=== PATIENT | female | born 1970 | race Caucasian/White ===

== ENCOUNTER 2018-09-26 15:54 | Emergency (ER) | payer SELFPAY ==
[~2018-09-26] VITALS: Ht 152.4 cm; Wt 12.7 kg
[2018-09-26] MEDS ORDERED: ACETAMINOPHEN 500 MG TABLET PO ONE (17:30)
[2018-09-26] MEDS ORDERED: PERTUSS(ACELL),DIPH,TET VAC/PF 0.5 ML VIAL IM ONE (17:30)
[2018-09-26] MEDS ORDERED: SULFAMETHOX/TRIMETH DS 800-160 MG/TABLET PO ONE (17:30)
[2018-09-26] MEDS ORDERED: CefTRIAXone SODIUM 1 GM/VIAL IM ONE (17:30)
[2018-09-26] MEDS ORDERED: POVIDONE-IODINE 10% 15 ML SOLUTION UD TP ONE (17:30)
[2018-09-26] MEDS ORDERED: BACITRACIN 0.9 GM PACKET OINTMENT TP ONE (17:30)
[2018-09-26] MEDS ORDERED: LIDOCAINE/PF 1% 2 ML VIAL IM ONE (17:30)
[2018-09-26 18:50] VITALS: BP 125/62
== END 2018-09-26 18:57 | disposition home or self-care (01) ==
LOC: EMS 15:56
DX: S91.302A Unspecified open wound, left foot, initial encounter (principal); L03.116 Cellulitis of left lower limb; F17.210 Nicotine dependence, cigarettes, uncomplicated; X58.XXXA Exposure to other specified factors, initial encounter; Y93.89 Activity, other specified; Y92.89 Other specified places as the place of occurrence of the external cause; Y99.8 Other external cause status
CPT/HCPCS: 90471; 90715; 96372; 99283; 99406; J0696; J3490